=== PATIENT | female | born 1990 | race African-American/Black ===

== ENCOUNTER 2021-09-14 14:26 | Emergency (ER) | payer BC ==
--- NOTE | 2021-09-14 16:21 | RAD REPORT ---
EXAM DESCRIPTION: RAD - Hip Right 2 View - 09/14/2021 4:05 pm CLINICAL HISTORY: PAIN COMPARISON: <Comparisons> FINDINGS: Mild arthritic changes right hip. No fracture, dislocation or AVN pattern seen.
--- NOTE | 2021-09-14 17:36 | RAD REPORT ---
EXAM DESCRIPTION: US - Extremity Venous Uni Ltd - 09/14/2021 5:21 pm CLINICAL HISTORY: PAIN Leg swelling and edema. COMPARISON: <Comparisons> FINDINGS: Right lower extremity venous system was interrogated with Doppler technique. Normal flow, compressibility and augmentation was noted. There is no DVT present. IMPRESSION: No evidence of right lower extremity deep venous thrombosis.
--- NOTE | 2021-09-14 17:43 | EDPHYS ---
Physician Documentation [facility] Name: Sandrine Rodriguez Age: 31 yrs Sex: Female : 1990 Arrival Date: 09/14/2021 Time: 15:03 Bed 11 Private MD: ED Physician Reginald Coto HPI: 09/14 17:40 This 31 yrs old Black Female presents to ER via Ambulatory with complaints of Hip Pain. kb 17:40 The patient or guardian reports pain. that occurred at an unknown site, sustained from kb unknown reason, There is no obvious deformity, The patient is able to self ambulate. The patient is able to bear their full body weight. There is no radiation of the patient's discomfort. The patient has not experienced similar symptoms in the past. The patient has not recently seen a physician. 17:42 The complaints affect the right hip and right femoral area. Onset: The symptoms/episode kb began/occurred 3 day(s) ago. Modifying factors: The symptoms are alleviated by remaining still, the symptoms are aggravated by lifting leg and other movements such as getting on stretcher. Associated signs and symptoms: Loss of consciousness: the patient experienced no loss of consciousness, Pertinent positives: None. Severity of symptoms: At their worst the symptoms were moderate, in the emergency department the symptoms are unchanged. Historical: - Allergies: 15:07 No Known Allergies; aa5 - PMHx: 15:07 None; aa5 - PSHx: 15:07 cyst drainage; aa5 - Immunization history:: Adult Immunizations unknown. - Social history:: Smoking status: Patient denies any tobacco usage or history of. ROS: 17:39 Constitutional: Negative for fever, chills, and weight loss. kb 17:39 MS/extremity: Positive for pain, tenderness, of the right femoral area and right hip. 17:39 All other systems are negative. Exam: 17:39 Constitutional: This is a well developed, well nourished patient who is awake, alert, kb and in no acute distress. Head/Face: Normocephalic, atraumatic. ENT: Moist Mucous membranes Cardiovascular: Regular rate and rhythm with a normal S1 and S2. No gallops, murmurs, or rubs. No pulse deficits. Respiratory: Respirations even and unlabored. No increased work of breathing. Talking in full sentences Abdomen/GI: Soft, non-tender. No distention Skin: Warm, dry with normal turgor. Normal color. Neuro: Awake and alert, GCS 15, oriented to person, place, time, and situation. Moves all extremities. Normal gait. Psych: Awake, alert, with orientation to person, place and time. Behavior, mood, and affect are within normal limits. 17:39 Musculoskeletal/extremity: Extremities: grossly normal except: noted in the right hip and right femoral area: pain, tenderness, ROM: intact in all extremities, Circulation is intact in all extremities. Sensation intact. Weight bearing: able to fully bear weight. Vital Signs: 15:08 BP 111 / 73; Pulse 98; Resp 16 S; Temp 97.6(TE); Pulse Ox 98% on R/A; Weight 123.83 kg aa5 (R); Height 5 ft. 9 in. (175.26 cm) (R); 15:08 Body Mass Index 40.31 (123.83 kg, 175.26 cm) aa5 MDM: 15:12 Patient medically screened. kb 17:38 Data reviewed: vital signs, nurses notes. Data interpreted: Pulse oximetry: on room air kb is 98 %. Interpretation: normal. Counseling: I had a detailed discussion with the patient and/or guardian regarding: the historical points, exam findings, and any diagnostic results supporting the discharge/admit diagnosis, radiology results, the need for outpatient follow up, a orthopedic surgeon, to return to the emergency department if symptoms worsen or persist or if there are any questions or concerns that arise at home. 09/14 15:17 Order name: Hip Right 2 View XRAY; Complete Time: 16:23 kb 09/14 15:17 Order name: US Extremity Venous Unilateral Ltd; Complete Time: 17:38 kb Administered Medications: 17:43 Drug: HYDROcodone-acetaminophen 5 mg-325 mg 1 tabs Route: PO; ss 17:53 Follow up: Response: No adverse reaction; Medication administered at discharge. ss Disposition Summary: 09/14/21 17:43 Discharge Ordered Location: Home kb Condition: Stable kb Diagnosis - Pain in right hip kb Followup: kb - With: Emergency Department - When: As needed - Reason: Worsening of condition Followup: kb - With: Private Physician - When: 2 - 3 days - Reason: Recheck today's complaints, Continuance of care, Re-evaluation by your physician Discharge Instructions: - Discharge Summary Sheet kb - Musculoskeletal Pain kb Forms: - Medication Reconciliation Form kb - Thank You Letter kb - Antibiotic Education kb - Prescription Opioid Use kb Prescriptions: - Cyclobenzaprine 10 mg Oral Tablet - take 1 tablet by ORAL route every 8 hours As needed; 15 tablet; Refills: 0, kb Product Selection Permitted - Diclofenac Sodium 75 mg Oral tablet,delayed release (DR/EC) - take 1 tablet by ORAL route 2 times per day As needed; 30 tablet; Refills: 0, kb Product Selection Permitted Signatures: Dispatcher [employer] EDOK Kika Chauhan, LOOM TUNER-C Viji Eason RN RN aa5 Gloria Schreiber RN RN ss Corrections: (The following items were deleted from the chart) 15:08 15:07 PSHx: None; aaRakesh aa5
--- NOTE | 2021-09-14 17:43 | ER ---
Nurse's Notes [facility] Name: Sandrine Rodriguez Age: 31 yrs Sex: Female : 1990 Arrival Date: 09/14/2021 Time: 15:03 Bed 11 Private MD: Diagnosis: Pain in right hip Presentation: 09/14 15:08 Chief complaint: Patient states: right hip pain since , denies known injury. aa5 Coronavirus screen: At this time, the client does not indicate any symptoms associated with coronavirus-19. Ebola Screen: No symptoms or risks identified at this time. Initial Sepsis Screen: Does the patient meet any 2 criteria? No. Patient's initial sepsis screen is negative. Does the patient have a suspected source of infection? No. Patient's initial sepsis screen is negative. Risk Assessment: Do you want to hurt yourself or someone else? Patient reports no desire to harm self or others. Onset of symptoms was August 2021. 15:08 Method Of Arrival: Ambulatory aa5 15:08 Acuity: LEIDY 4 aa5 Historical: - Allergies: 15:07 No Known Allergies; aa5 - PMHx: 15:07 None; aa5 - PSHx: 15:07 cyst drainage; aa5 - Immunization history:: Adult Immunizations unknown. - Social history:: Smoking status: Patient denies any tobacco usage or history of. Screenin:33 Abuse screen: Denies threats or abuse. Denies injuries from another. Nutritional ss screening: No deficits noted. Tuberculosis screening: Never had TB. Fall Risk None identified. Assessment: 17:49 General: Appears in no apparent distress. comfortable, Behavior is calm, cooperative, ss Denies fever, feeling ill, fatigue, chills. Neuro: Greco Agitation-Sedation Scale (RASS): 0 - Alert and Calm Level of Consciousness is awake, alert, obeys commands, Oriented to person, place, time, situation. Cardiovascular: Capillary refill < 3 seconds is brisk in bilateral fingers. Respiratory: Airway is patent Respiratory effort is even, unlabored, Respiratory pattern is regular, symmetrical. Derm: Skin is intact, is healthy with good turgor, Skin is dry, Skin is pink, warm \T\ dry. normal. Vital Signs: 15:08 BP 111 / 73; Pulse 98; Resp 16 S; Temp 97.6(TE); Pulse Ox 98% on R/A; Weight 123.83 kg aa5 (R); Height 5 ft. 9 in. (175.26 cm) (R); 15:08 Body Mass Index 40.31 (123.83 kg, 175.26 cm) aa5 ED Course: 15:03 Patient arrived in ED. mr 15:06 [facility]C [facility]. kb 15:06 Reginald Coto MD is Attending Physician. kb 15:07 Arm band placed on. aa5 15:09 Triage completed. aa5 16:07 Hip Right 2 View XRAY In Process Unspecified. EDMS 16:33 Gloria Schreiber, RN is Primary Nurse. ss 16:33 Patient has correct armband on for positive identification. Bed in low position. ss 17:23 US Extremity Venous Unilateral Ltd In Process Unspecified. EDMS 17:49 No provider procedures requiring assistance completed. Patient did not have IV access ss during this emergency room visit. Administered Medications: 17:43 Drug: HYDROcodone-acetaminophen 5 mg-325 mg 1 tabs Route: PO; ss 17:53 Follow up: Response: No adverse reaction; Medication administered at discharge. ss Medication: 17:49 VIS not applicable for this client. ss Outcome: 17:43 Discharge ordered by . kb 17:49 Discharged to home ambulatory. ss 17:49 Condition: good 17:49 Discharge instructions given to patient, Instructed on discharge instructions, follow up and referral plans. medication usage, Demonstrated understanding of instructions, follow-up care, medications, Prescriptions given X 2. 17:53 Patient left the ED. ss Signatures: Dispatcher [employer] EDHI Kika Chauhan FNP-C FNP-Ruby Sara Wayne, Viji, RN RN aa5 Gloria Schreiber, TAMIE RN ss Corrections: (The following items were deleted from the chart) 15:08 15:07 PSHx: None; aa5 aa5
[2021-09-14] MEDS ORDERED: HYDROCODONE/APAP 5/325 MG TAB ONE (17:46)
[2021-09-14 18:00] VITALS: BP 111/73; TEMP 97.6; O2SAT 98
== END 2021-09-14 17:53 | disposition home or self-care (01) ==
LOC: ER 14:26
DX: M25.551 Pain in right hip (principal)
CPT/HCPCS: 93971; 99283